=== PATIENT | female | born 1935 | race Caucasian/White ===

== ENCOUNTER 2016-09-24 01:00 | Observation (INO) | payer MEDICARE, OTHER ==
[~2016-09-24] VITALS: Ht 165.1 cm; Wt 50.5 kg
[2016-09-24 01:33] LABS: HEMOGLOBIN 14.3 gm/dl (12.3-15.3); RED BLOOD COUNT 4.83 M/UL (4.00-5.10); WHITE BLOOD COUNT 11.6 K/UL (4.5-11.0)
[2016-09-24] MEDS ORDERED: PROAIR HFA8.5 GM INH (08:51)
[2016-09-24] MEDS ORDERED: LOPRESSOR 25 MG25 MG PO (08:52)
[2016-09-24] MEDS ORDERED: ARICEPT10 MG PO (08:54)
[2016-09-24] MEDS ORDERED: OMEPRAZOLE40 MG PO (08:54)
[2016-09-24] MEDS ORDERED: IMDUR ER TAB 3030 MG PO (08:55)
[2016-09-24] MEDS ORDERED: COLACE 100MG C100 MG PO (08:55)
[2016-09-24] MEDS ORDERED: SIMVASTATIN40 MG PO (08:56)
[2016-09-24] MEDS ORDERED: PROZAC 10 MG CA10 MG PO (08:56)
[2016-09-24] MEDS ORDERED: NAMENDA5 MG PO (08:57)
[2016-09-24] MEDS ORDERED: SYMBICORT 160-1 INHA INH (08:58)
[2016-09-24] MEDS ORDERED: SPIRIVA18 MCG INH (09:03)
[2016-09-25 03:52] LABS: HEMOGLOBIN 12.9 gm/dl (12.3-15.3); RED BLOOD COUNT 4.44 M/UL (4.00-5.10)
[2016-09-25 03:54] LABS: WHITE BLOOD COUNT 7.6 K/UL (4.5-11.0)
[2016-09-25] MEDS ORDERED: ELIQUIS2.5 MG PO (16:01)
[2016-09-25] MEDS ORDERED: SYNTHROID25 MCG PO (16:03)
[2016-09-25] MEDS ORDERED: MEGACE400 MG/10 PO (16:05)
[2016-09-25] MEDS ORDERED: TYLENOL W/CODEIN1 E1 PO (16:09)
[2016-09-25] MEDS ORDERED: CEFUROXIME250 MG PO (16:14)
[2016-09-25] MEDS ORDERED: ENSURE LIQUID237 ML PO (16:15)
[2016-09-25] MEDS ORDERED: CRESTOR10 MG PO (16:17)
== END 2016-09-25 17:20 | disposition home or self-care (01) ==
LOC: ER1 01:00 → PROG CARE 04:21 → ZEROF 04:21 → PROG CARE 05:20
PROVIDERS: Internal Medicine Infectious Disease; Student in an Organized Health Care Education/Training Program; ADMIT Internal Medicine
PROC: 05HM33Z Insertion of Infusion Device into Right Internal Jugular Vein, Percutaneous Approach (ICD-10-PCS; principal; 2016-09-24)
PROC: 0JH606Z Insertion of Pacemaker, Dual Chamber into Chest Subcutaneous Tissue and Fascia, Open Approach (ICD-10-PCS; 2016-09-24)
PROC: 02H63JZ Insertion of Pacemaker Lead into Right Atrium, Percutaneous Approach (ICD-10-PCS; 2016-09-24)
PROC: 02HK3JZ Insertion of Pacemaker Lead into Right Ventricle, Percutaneous Approach (ICD-10-PCS; 2016-09-24)
DX: R00.1 Bradycardia, unspecified (principal); I49.5 Sick sinus syndrome; R55 Syncope and collapse; I48.0 Paroxysmal atrial fibrillation; N30.00 Acute cystitis without hematuria; E44.0 Moderate protein-calorie malnutrition; E78.5 Hyperlipidemia, unspecified; J44.9 Chronic obstructive pulmonary disease, unspecified; G30.9 Alzheimer's disease, unspecified; I25.10 Atherosclerotic heart disease of native coronary artery without angina pectoris; E86.0 Dehydration; N39.0 Urinary tract infection, site not specified; F02.80 Dementia in other diseases classified elsewhere, unspecified severity, without behavioral disturbance, psychotic disturbance, mood disturbance, and anxiety; K57.90 Diverticulosis of intestine, part unspecified, without perforation or abscess without bleeding; R94.6 Abnormal results of thyroid function studies; E03.9 Hypothyroidism, unspecified; Z79.01 Long term (current) use of anticoagulants; Z79.899 Other long term (current) drug therapy; Z87.11 Personal history of peptic ulcer disease; Z88.8 Allergy status to other drugs, medicaments and biological substances; Z87.891 Personal history of nicotine dependence; Z91.81 History of falling; Z98.41 Cataract extraction status, right eye; Z98.42 Cataract extraction status, left eye; Z90.710 Acquired absence of both cervix and uterus
CPT/HCPCS: ECHO; 33208; 36415; 36556; 51702; 70450; 71010; 72125; 72170; 80053; 80061; 81001; 82550; 82553; 83605; 83874; 83880; 84439; 84443; 84484; 85025; 85610; 85730; 87040; 87077; 87086; 87186; 93005; 93306; 94640; 94664; 96365; 96375; 97116; 97530; 99285; C1785; C1898; G0378; J0461; J0696; J1644; J2250; J2405; J3010; J3370; J7040; J7050

== ENCOUNTER 2016-10-07 23:07 | Emergency (ER) | payer MEDICARE, OTHER ==
[~2016-10-07 23:07] MED LIST: ARICEPT10 MG PO; CEFUROXIME250 MG PO; COLACE 100MG C100 MG PO; CRESTOR10 MG PO; ELIQUIS2.5 MG PO; ENSURE LIQUID237 ML PO; IMDUR ER TAB 3030 MG PO; LOPRESSOR 25 MG25 MG PO; MEGACE400 MG/10 PO; NAMENDA5 MG PO; OMEPRAZOLE40 MG PO; PROAIR HFA8.5 GM INH; PROZAC 10 MG CA10 MG PO; SIMVASTATIN40 MG PO; SPIRIVA18 MCG INH; SYMBICORT 160-1 INHA INH; SYNTHROID25 MCG PO; TYLENOL W/CODEIN1 E1 PO
[2016-10-07 23:54] LABS: HEMOGLOBIN 12.8 gm/dl (12.3-15.3); RED BLOOD COUNT 4.38 M/UL (4.00-5.10); WHITE BLOOD COUNT 9.8 K/UL (4.5-11.0)
[2016-10-08 00:13] LABS: BUN/CREATININE RATIO 25 (0-10)
== END 2016-10-08 04:10 | disposition home or self-care (01) ==
LOC: ER1 23:07
PROVIDERS: Family Medicine
DX: R07.89 Other chest pain (principal); J44.9 Chronic obstructive pulmonary disease, unspecified; M19.90 Unspecified osteoarthritis, unspecified site; I25.10 Atherosclerotic heart disease of native coronary artery without angina pectoris; Z90.710 Acquired absence of both cervix and uterus; Z88.8 Allergy status to other drugs, medicaments and biological substances; Z95.0 Presence of cardiac pacemaker
CPT/HCPCS: 36415; 71010; 80053; 82150; 82550; 82553; 83690; 83874; 84484; 85025; 93005; 99285

== ENCOUNTER → 2016-11-17 | Outpatient (CLI) | payer MEDICARE, OTHER ==
[~2016-11-17] MED LIST changes: +ASPIRIN81 MG PO; +LEVAQUIN500 MG PO; +NITROSTAT0.4 MG SL; +OMEPRAZOLE20 MG PO
[2016-11-17 13:28] LABS: HEMOGLOBIN 15.3 gm/dl (12.3-15.3); RED BLOOD COUNT 5.28 M/UL (4.00-5.10); WHITE BLOOD COUNT 5.5 K/UL (4.5-11.0)
[2016-11-17 13:52] LABS: BUN/CREATININE RATIO 14 (0-10)
== END ==
LOC: LAB 12:45
PROVIDERS: Internal Medicine Cardiovascular Disease
DX: I49.5 Sick sinus syndrome (principal); I45.5 Other specified heart block; T82.110A Breakdown (mechanical) of cardiac electrode, initial encounter
CPT/HCPCS: 36415; 80048; 85025

== ENCOUNTER 2016-11-18 08:30 | Outpatient (CLI) | payer MEDICARE, OTHER ==
[~2016-11-18] VITALS: Ht 160 cm; Wt 45.4 kg
[~2016-11-18 08:30] MED LIST changes: -ASPIRIN81 MG PO; -LEVAQUIN500 MG PO; -NITROSTAT0.4 MG SL; -OMEPRAZOLE20 MG PO
[2016-11-18] MEDS ORDERED: ASPIRIN81 MG PO (09:41)
[2016-11-18] MEDS ORDERED: NITROSTAT0.4 MG SL (09:43)
[2016-11-18] MEDS ORDERED: OMEPRAZOLE20 MG PO (09:44)
[2016-11-19] MEDS ORDERED: LEVAQUIN500 MG PO (09:29)
[2016-11-19] MEDS ORDERED: TYLENOL W/CODEIN1 E1 PO (09:30)
== END 2016-11-19 09:10 | disposition home or self-care (01) ==
LOC: CATH 08:30 → MED SURG 4 11:15 → CATH 12:28 → MED SURG 4 12:28 → CATH 11-19 09:10
DX: T82.110A Breakdown (mechanical) of cardiac electrode, initial encounter (principal); I49.5 Sick sinus syndrome; I45.5 Other specified heart block; I95.1 Orthostatic hypotension; I25.10 Atherosclerotic heart disease of native coronary artery without angina pectoris; F03.90 Unspecified dementia, unspecified severity, without behavioral disturbance, psychotic disturbance, mood disturbance, and anxiety
CPT/HCPCS: 33215; 93005; 99152; J2250; J3010; J3370; J7040; J7050; J7070